=== PATIENT | female | born 1990 ===

== ENCOUNTER → 2019-12-25 | Outpatient (CLI) | payer OTHER ==
[2019-12-27 16:10] LABS: HPV 16 Negative (Negative); HPV 18 Negative (Negative); HPV OTHER HR TYPES Negative (Negative)
== END | disposition home or self-care (01) ==
LOC: LAB 18:11 → LAB SHORT 18:11
PROVIDERS: Obstetrics & Gynecology
DX: R87.610 Atypical squamous cells of undetermined significance on cytologic smear of cervix (ASC-US) (principal); R87.810 Cervical high risk human papillomavirus (HPV) DNA test positive
CPT/HCPCS: 87624; G0123